=== PATIENT | female | born 1985 | race African-American/Black ===

== ENCOUNTER 2020-10-12 15:25 | Outpatient (CLI) | payer OTHER ==
[~2020-10-12] VITALS: Ht 177.8 cm; Wt 99.5 kg
[~2020-10-12 15:25] MED LIST: PREN1TAB60 PO
[2020-10-12] MEDS ORDERED: B6/F1TAB PO (16:11)
== END 2020-10-12 16:22 | disposition home or self-care (01) ==
LOC: LDOP 15:25
PROVIDERS: ATTEND Obstetrics & Gynecology Maternal & Fetal Medicine
DX: O36.8130 Decreased fetal movements, third trimester, not applicable or unspecified (principal); Z3A.38 38 weeks gestation of pregnancy
CPT/HCPCS: 59025

== ENCOUNTER 2020-10-23 00:15 | Inpatient (IN) | payer OTHER ==
[~2020-10-23] VITALS: Ht 177.8 cm; Wt 100.0 kg
[~2020-10-23 00:15] MED LIST changes: +B6/F1TAB PO
[2020-10-23] MEDS ORDERED: OXYTOCIN 30U/ 0.9% NaCL 500ML 500 ML ONE (00:25)
[2020-10-23] MEDS ORDERED: MISOPROSTOL 200 MCG TABLET ONE (00:26)
[2020-10-23] MEDS ORDERED: NEWBORN KIT ONE (00:26)
[2020-10-23] MEDS ORDERED: LIDOCAINE 1%, 20ML ONE (00:26)
[2020-10-23] MEDS ORDERED: D5%-LACTATED RINGERS 1,000 ML IV SCH (00:30)
[2020-10-23] MEDS ORDERED: FENTANYL PF 100 MCG/2ML IV PRN (00:30)
[2020-10-23] MEDS ORDERED: TERBUTALINE 1 MG/ML, 1ML SQ PRN (00:30)
[2020-10-23] MEDS ORDERED: TERBUTALINE 1 MG/ML, 1ML IVPush PRN (00:30)
[2020-10-23] MEDS ORDERED: METOCLOPRAMIDE 5 MG/ML, 2ML IVPush PRN (00:30)
[2020-10-23] MEDS ORDERED: FENTANYL PF 100 MCG/2ML IVPush PRN (00:30)
[2020-10-23] MEDS: LACTATED RINGERS 1,000 ML IV SCH ×2 (00:30→06:12)
[2020-10-23] MEDS ORDERED: OXYTOCIN 30U/ 0.9% NaCL 500ML 500 ML IV ONE (00:30)
[2020-10-23] MEDS ORDERED: ONDANSETRON 2MG/ML, 2ML IVPush PRN (00:30)
[2020-10-23 00:35] VITALS: BP 142/86
[2020-10-23 00:45] LABS: BASOPHILS % (AUTO) 1 % (0-1); EOSINOPHILS % (AUTO) 0 % (1-7); LYMPHOCYTES % (AUTO) 22 % (22-44); MEAN CORPUSCULAR HEMOGLOBIN 27.5 pg (27.0-34.8); MEAN CORPUSCULAR HGB CONC 32.6 g/dL (32.4-35.8); MEAN PLATELET VOLUME 9.5 fL (7.4-10.4); MONOCYTES % (AUTO) 7 % (2-9); NEUTROPHILS % (AUTO) 71 % (42-75); PLATELET COUNT 207 x10^3/uL (130-400); RED BLOOD COUNT 4.72 x10^6/uL (3.82-5.3); RED CELL DISTRIBUTION WIDTH 13.9 % (9.6-15.2)
[2020-10-23 00:49] LABS: MD NO
[2020-10-23] MEDS ORDERED: FENTANYL/BUPIV./NS/PF 250 ML EPIDCONT SCH (04:30)
[2020-10-23] MEDS ORDERED: ONDANSETRON 2MG/ML, 2ML IV PRN (06:00)
[2020-10-23] MEDS ORDERED: OXYcodone/APAP 5/325MG TABLET PO PRN ×2 (06:00)
[2020-10-23] MEDS ORDERED: DOCUSATE 100 MG CAPSULE PO PRN (06:00)
[2020-10-23] MEDS ORDERED: MISOPROSTOL 200 MCG TABLET PR PRN (06:00)
[2020-10-23] MEDS ORDERED: METHYLERGONOVINE 0.2 MG/ML IM PRN (06:00)
[2020-10-23] MEDS ORDERED: SIMETHICONE 80 MG CHEW TAB PO PRN (06:00)
[2020-10-23] MEDS ORDERED: ACETAMINOPHEN 325 MG TABLET PO PRN ×2 (06:00)
[2020-10-23] MEDS ORDERED: OXYTOCIN 30U/ 0.9% NaCL 500ML 500 ML IV SCH (06:00)
[2020-10-23] MEDS: IBUPROFEN 600 MG TABLET PO PRN ×2 (08:27→14:00)
[2020-10-23 09:00] VITALS: BP 119/76
[2020-10-23] MEDS ORDERED: PRENATAL VIT/IRON/FA 1 EACH TABLET PO SCH (09:00)
[2020-10-23 13:23] LABS: BASOPHILS % (AUTO) 1 % (0-1); EOSINOPHILS % (AUTO) 0 % (1-7); LYMPHOCYTES % (AUTO) 11 % (22-44); MEAN CORPUSCULAR HEMOGLOBIN 27.4 pg (27.0-34.8); MEAN CORPUSCULAR HGB CONC 32.8 g/dL (32.4-35.8); MEAN PLATELET VOLUME 9.2 fL (7.4-10.4); MONOCYTES % (AUTO) 5 % (2-9); NEUTROPHILS % (AUTO) 83 % (42-75); PLATELET COUNT 186 x10^3/uL (130-400); RED CELL DISTRIBUTION WIDTH 14.2 % (9.6-15.2)
[2020-10-23 13:25] LABS: MD NO
[2020-10-23 13:33] VITALS: BP 113/73
[2020-10-23] MEDS ORDERED: DIPH,PERTUSS(ACELL),TET VAC/PF 0.5 ML IM-VACC ONE (15:00)
== END 2020-10-23 18:02 | disposition home or self-care (01) | DRG 807 ==
LOC: LDIP 00:15 → 2NW 07:39
PROVIDERS: ADMIT Obstetrics & Gynecology Maternal & Fetal Medicine; ATTEND Obstetrics & Gynecology Maternal & Fetal Medicine
PROC: 10E0XZZ Delivery of Products of Conception, External Approach (ICD-10-PCS; principal; 2020-10-23)
PROC: 10D17Z9 Manual Extraction of Products of Conception, Retained, Via Natural or Artificial Opening (ICD-10-PCS; 2020-10-23)
PROC: 3E0R3BZ Introduction of Anesthetic Agent into Spinal Canal, Percutaneous Approach (ICD-10-PCS; 2020-10-23)
PROC: 00HU33Z Insertion of Infusion Device into Spinal Canal, Percutaneous Approach (ICD-10-PCS; 2020-10-23)
PROC: 10907ZC Drainage of Amniotic Fluid, Therapeutic from Products of Conception, Via Natural or Artificial Opening (ICD-10-PCS; 2020-10-23)
DX: O80 Encounter for full-term uncomplicated delivery (principal); Z37.0 Single live birth; Z3A.40 40 weeks gestation of pregnancy; Z20.822 Contact with and (suspected) exposure to COVID-19
CPT/HCPCS: 36415; 85025; 86592; 86850; 86900; 87635; 90715; G0378; J3010; J2590; J7120